=== PATIENT | male | born 1975 | race Two or more races ===

== ENCOUNTER 2019-06-16 14:39 | Emergency (ER) | payer OTHER, SELFPAY ==
--- NOTE | ~2019-06-16 | CT_ITS ---
EXAMINATION: CT brain wo con DATE: 06/16/2019 16:01 INDICATION: Headache and dizziness. TECHNIQUE: Computed tomography (CT) of the head was performed without intravenous contrast. The mA wa s adjusted according to patient size. Iterative reconstruction technique was employed. The dose-lengt h product was 605.33 mGy-cm. COMPARISON: None FINDINGS: There is no intracranial hemorrhage, acute infarction, or abnormal intracranial mass lesion . The ventricles are normal in size. Cavum septum pellucidum and vergae are noted. There is mild muco stephane thickening in the ethmoid sinuses. The orbits are normal. The mastoid air cells are normal. IMPRESSION: 1. Normal brain. Reviewed, dictated and finalized at location A. HAND IMPRESSION: 1. Normal brain.
--- NOTE | ~2019-06-16 | US_ITS ---
EXAMINATION: US venous doppler LE RT EXAM DATE: 06/16/2019 15:56 INDICATION: Right calf pain. TECHNIQUE: Multiple grayscale, color flow and Doppler images of the right lower extremity deep venous system were obtained and reviewed. There is no prior study for comparison. FINDINGS: The right common femoral, femoral and profunda veins demonstrate normal color flow, respira tory variation, augmentation and compressibility. Compressibility, color flow confirmed within the r ight popliteal, posterior tibial, peroneal, and greater saphenous veins. IMPRESSION: 1. No right lower extremity deep venous thrombosis. Reviewed, dictated and finalized at location A. ANIZER OPERATOR
--- NOTE | ~2019-06-16 | XR_ITS ---
EXAMINATION: XR chest 2V 06/16/2019 15:43 INDICATION: Dizziness and weakness. Nausea. Dyspnea. PROCEDURE: 2 view chest COMPARISON: No prior studies for comparison. FINDINGS: The lungs are clear. The cardiomediastinal silhouette is within normal limits. There are no pleural effusions. There is no pneumothorax suspected. IMPRESSION: 1: NO ACUTE CARDIOPULMONARY DISEASE. Reviewed, dictated and finalized at location B. UCT SAFETY SPECIALIST
--- NOTE | 2019-06-16 14:49 | ECG_ITS ---
Measurements Intervals [place] Rate: 58 P: 21 VA: 141 QRS: 13 QRSD: 106 T: 87 QT: 442 QTc: 438 Interpretive Statements SINUS BRADYCARDIA BORDERLINE ST-T WAVE ABNORMALITY- ANTEROLAT/LAT LEADS BASELINE WANDER- V3 BORDERLINE ECG Electronically Signed On 06-16-2019 16:28:11 CAN LINE OPERATOR by Luis Spivey D.O.
[2019-06-16 14:51] VITALS: BP 134/96; PULSE 76; RESP 24; O2SAT 98
--- NOTE | 2019-06-16 14:54 | ED.DIZZY ---
HPI - Dizziness General Chief Complaint: Dizziness <Lali Conway MD - Last Filed: 06/16/19 16:31> Stated Complaint: dizzy <Lali Conway MD - Last Filed: 06/16/19 16:31> Time Seen by Provider: 06/16/19 14:51 <Lali Conway MD - Last Filed: 06/16/19 16:31> Source: patient and RN notes reviewed <Lali Conway MD - Last Filed: 06/16/19 16:31> Mode of arrival: ambulatory <Lali Conway MD - Last Filed: 06/16/19 16:31> Limitations: no limitations <Lali Conway MD - Last Filed: 06/16/19 16:31> History of Present Illness HPI Narrative: Pt is a 44 y/o male with a Hx of DM, who presents to the ED with c/o dizziness starting last night. He notes that he was recently placed on Alogliptin. Pt states that he developed dizziness and an intense headache last night. He notes that his headache is aggravated with light. Pt also reports having generalized weakness and troubled gait, but denies any CP, SOB, ABD pain, vomiting, cough, or LE edema. He states that his BS has been running between 150-200 recently. Pt denies having any recent travel. <Lali Conway MD - Last Filed: 06/16/19 16:31> MD elicited complaint: dizziness <Lali Conway MD - Last Filed: 06/16/19 16:31> Onset (ago): day(s) (1) <Lali Conway MD - Last Filed: 06/16/19 16:31> Description: difficulty walking <Lali Conway MD - Last Filed: 06/16/19 16:31> Context: change in medication (newly prescribed Alogliptin) <Lali Conway MD - Last Filed: 06/16/19 16:31> Associated symptoms: weakness (generalized) and other (headache) <Lali Conway MD - Last Filed: 06/16/19 16:31> Associated neuro symptoms: gait ataxia <Lali Conway MD - Last Filed: 06/16/19 16:31> Related Data Allergies/Adverse Reactions: Allergies Allergy/AdvReac Type Severity Reaction Status Date / Time No Known Allergies Allergy Verified 06/16/19 15:00 <Lali Conway MD - Last Filed: 06/16/19 16:31> Review of Systems Review of Systems: Narrative: CONSTITUTIONAL: Denies fever, chills, or sweats. Reports generalized weakness. CARDIOVASCULAR: Denies chest pain, palpitations, or LE edema. RESPIRATORY: Denies cough or dyspnea. GASTROINTESTINAL: Denies abdominal pain, nausea, vomiting, or diarrhea. GENITOURINARY: Denies dysuria or hematuria. MUSCULOSKELETAL: Denies back pain, joint pain, or myalgia. NEUROLOGIC: Reports headache, dizziness, and troubled gait. Denies numbness. <Lali Conway MD - Last Filed: 06/16/19 16:31> All systems reviewed & are unremarkable except as noted in HPI and below <Lali Conway MD - Last Filed: 06/16/19 16:31> PMFSH Past Medical History Medical History: Medical History Diabetes Gout <Lali Conway MD - Last Filed: 06/16/19 16:31> Surgical History Surgical History: Surgical History No significant past surgical history <Lali Conway MD - Last Filed: 06/16/19 16:31> Social History Social History: Social History Smoking status: Never smoker Gender identity (if verbalized by the patient): Male <Lali Conway MD - Last Filed: 06/16/19 16:31> Exam Narrative: Exam Narrative: GENERAL: Uncomfortable appearing, well-nourished, and in no acute distress. HEAD: Normocephalic, atraumatic. EYES: PERRLA and EOMI. ENT: Nares clear, no rhinorrhea or epistaxis. Mucous membranes dry. NECK: Supple. CHEST: Clear to auscultation. No respiratory distress. HEART: Regular rate and rhythm. No murmur heard. Normal peripheral pulses. ABDOMEN: Soft, nontender, nondistended, normal active bowel sounds. EXTREMITIES: Normal range of motion. No edema. Rt calf tenderness. SKIN: Warm, dry, no rash. NEURO: No focal deficits. Alert and oriented. <Lali Conway MD - Last Filed:
[2019-06-16 15:03] LABS: Glucose Point of Care 206 (65-105)
[2019-06-16] MEDS: SODIUM CHLORIDE 0.9% IV 1,000 ML 999 ML IV CONT (15:07)
[2019-06-16 15:09] LABS: Basophils Absolute Auto 0.1 K/mm3 (0.0-0.1); Basophils Percent Auto 0.8 % (0.2-1.2); Eosinophils Absolute Auto 0.2 K/mm3 (0-0.3); Hematocrit 47.3 % (42.0-52.0); Hemoglobin 15.7 g/dL (14.0-18.0); Immature Granulocyte Absolute 0.01 K/mm3 (0.00-0.031); Immature Granulocyte Percent A 0.1 % (0-0.5); Lymphocytes Absolute Auto 2.86 K/mm3 (0.9-3.2); Lymphocytes Percent Auto 37.7 % (18.3-44.2); Mean Corpuscular HGB Conc 33.2 g/dl (32-36); Mean Corpuscular Hemoglobin 28.3 pg (26-34); Mean Corpuscular Volume 85.4 fl (80-100); Mean Platelet Volume 10.5 fl (7.4-10.4); Monocytes Absolute Auto 0.6 K/mm3 (0.1-0.6); Monocytes Percent Auto 8.2 % (2.6-8.5); Neutrophils Absolute Auto 3.9 K/mm3 (1.3-6.7); Neutrophils Percent Auto 51.2 % (45.5-73.1); Platelet Count Result 217 k/mm3 (150-375); Red Blood Count 5.54 M/mm3 (4.6-6.20); Red Cell Distribution Width 12.2 % (11.5-14.5); White Blood Count 7.6 K/mm3 (4.5-10.0)
[2019-06-16] MEDS: METOCLOPRAMIDE HCL INJ 10 MG/2 ML VIAL IV PUSH (15:09)
[2019-06-16] MEDS: MORPHINE SULFATE 4 MG/ML INJ IV PUSH (15:11)
[2019-06-16 15:18] LABS: Prothrombin Time 12.5 Seconds (11.1-14.7)
[2019-06-16 15:19] LABS: Add Urine Microscopic? YES; Appearance Urine Clear (Clear); Bilirubin Urine Negative (Negative); Blood Urine Negative (Negative); Color Urine Straw (Yellow); Glucose Urine UA 3+ mg/dL (Negative); Ketones Urine 1+ mg/dL (Negative); Leukocyte Esterase Ur Negative LEU/UL (Negative); Nitrate Urine Negative (Negative); Protein Urine Negative (Negative); RBC Urine 0-2 /hpf (0-2); Urobilinogen Urine Negative mg/dL (<2.0); WBC Urine 0-3 /hpf
[2019-06-16 15:19] LABS: Partial Thromboplastin Time 24.5 SECONDS (22.3-36.8)
[2019-06-16 15:20] LABS: Specific Grav Ur 1.031 (1.001-1.035)
[2019-06-16 15:21] LABS: Alveolar/Arterial O2 Gradient 26.7 mmHg; Base Excess ABG -1.1 mEq/l (+/-2.0); Carboxyhemoglobin 0.8 % THb (0-2.0); Device ROOM AIR; Fractional Inspired Oxygen 21 %; Methemoglobin ABG 0.3 %THb (0-1.5); Modified Allen's Test Pass; Oxygen Saturation ABG 95.8 % (95.0-100.0); Oxyhemoglobin 94.6 % THb (90.0-100.0); PCO2 ABG 36.9 mmHg (35.0-45.0); PO2 ABG 78.8 mmHg (80.0-100.0); PO2 FiO2 Ratio Arterial Blood 3.75 %; Reduced Hemoglobin 4.3 %THb (0-5.0); Site Drawn RIGHT RADIAL; Total Hemoglobin 15.8 g/dL (12.0-18.0); pH ABG 7.412 (7.350-7.450)
[2019-06-16 15:29] LABS: Alanine Aminotransferase 42 U/L (4-50); Albumin Level 4.5 g/dL (3.5-5.1); Alkaline Phosphatase 89 U/L (38-126); Aspartate Amino Transferase 39 U/L (17-59); Bilirubin,Total 0.6 mg/dL (0.2-1.3); Blood Urea Nitrogen 17 mg/dL (9-20); Calcium 9.6 mg/dL (8.4-10.2); Carbon Dioxide 22 mmol/L (22-30); Chloride 104 mmol/L (98-107); Estimated CRCL calculation 87 ml/min; Estimated Glomerular Filt Rate > 60; Glucose 217 mg/dL (75-110); Lipase 317 U/L (23-300); Potassium 4.4 mmol/L (3.4-5.0); Sodium 136 mmol/L (137-145)
[2019-06-16 15:36] LABS: Amphetamine Screen Urine Negative (Negative); Barbiturate Screen Urine Negative (Negative); Benzodiazepines Screen Urine Negative (Negative); Cannabinoid Screen Urine Negative (Negative); Cocaine Screen Urine Negative (Negative); Methadone Screen Urine Negative (Negative); Opiate Screen Urine Negative (Negative); Phencyclidine Screen Urine Negative (Negative)
[2019-06-16 15:39] LABS: NT Pro B Type Natriuretic Pept 38 PG/ML (5-100); Troponin I < 0.012 ng/mL (0.000-0.034)
[2019-06-16] MEDS: MECLIZINE HCL 25 MG TABLET PO (16:11)
[2019-06-16 16:21] LABS: Creatine Kinase 67 U/L (55-170)
[2019-06-16 17:23] VITALS: BP 128/81; PULSE 59; RESP 17; O2SAT 96
--- NOTE | 2019-06-16 19:12 | PC.NURSE ---
PT AMBULATED WITHOUT ASSISTANCE. PT STATED HE ONLY FEELS A LITTLE DIZZY .
--- NOTE | 2019-06-16 19:17 | PC.NURSE ---
Dr. Cohen requested that pt get up and walk and see how he handles it. oil change technician walked pt around nurses station and did fine. Pt states he felt good doing it. This RN informed Dr. Cohen
[2019-06-16 20:15] VITALS: BP 132/78; PULSE 60; RESP 15; O2SAT 100
== END 2019-06-16 20:05 | disposition home or self-care (01) ==
PROVIDERS: Emergency Medicine; Emergency Provider Emergency Medicine
DX: G43.909 Migraine, unspecified, not intractable, without status migrainosus (principal); E11.9 Type 2 diabetes mellitus without complications; M10.9 Gout, unspecified; R00.1 Bradycardia, unspecified; R94.31 Abnormal electrocardiogram [ECG] [EKG]; M79.661 Pain in right lower leg
CPT/HCPCS: 36415; 36600; 70450; 71046; 80053; 80307; 81001; 82375; 82550; 82805; 83050; 83690; 83880; 84484; 85025; 85610; 85730; 93005; 93971; 96365; 96375; 99284; A9270; J0131; J1100; J2270; J2765; J7030

== ENCOUNTER 2022-06-15 19:36 | Emergency (ER) | payer OTHER, SELFPAY ==
--- NOTE | ~2022-06-15 | CT_ITS ---
EXAMINATION: CT brain wo con INDICATION: Head injury COMPARISON: None TECHNIQUE: Standard unenhanced head CT. The dose-length product (DLP) was 605.33 mGy-cm. The mA was a djusted according to patient size. Iterative reconstruction technique was employed. FINDINGS: There is no intracranial hemorrhage, acute infarction, or abnormal mass lesion. The ventric les are normal. There is no abnormal mass effect or midline shift. The selby-white matter differentiat ion is normal. The basal cisterns are patent. The orbits are normal. There is mild mucosal thickening of the paranasal sinuses. IMPRESSION: 1. No acute intracranial abnormality. Reviewed, dictated and finalized at location F. GN PAINTER
--- NOTE | ~2022-06-15 | CT_ITS ---
EXAMINATION: CT cervical spine wo con DATE: 06/15/2022 22:27 INDICATION: Neck pain TECHNIQUE: Computed tomography (CT) of the cervical spine was performed without intravenous contrast. The dose-length product (DLP) was 292.59 mGy-cm. Automated exposure control and iterative reconstruc tion technique were employed. COMPARISON: None FINDINGS: Bone alignment is normal. There is no fracture. The vertebral body heights and intervertebr al disc spaces are normal. The odontoid process is intact. IMPRESSION: 1. No acute osseous abnormality. Reviewed, dictated and finalized at location F. HOUSE RECEIVING SUPERVISOR
--- NOTE | ~2022-06-15 | XR_ITS ---
EXAMINATION: XR shoulder LT min 2V INDICATION: Left shoulder pain TECHNIQUE: Four views of the left shoulder are submitted. COMPARISON: None FINDINGS: Normal alignment. No fracture. Glenohumeral and acromioclavicular joint spaces are normal. Soft tissues are unremarkable. IMPRESSION: 1. No acute osseous abnormality. Reviewed, dictated and finalized at location F. ROENTEROLOGIST
[2022-06-15 19:54] VITALS: BP 137/93; PULSE 98; RESP 18; TEMP 36.2; O2SAT 99
[2022-06-15 21:12] VITALS: BP 105/69; PULSE 79; RESP 18; TEMP 36.6; O2SAT 99
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
[2022-06-15 23:39] VITALS: BP 118/82; PULSE 70; RESP 18; TEMP 36.6; O2SAT 99
== END 2022-06-15 23:39 | disposition home or self-care (01) ==
PROVIDERS: Emergency Provider Emergency Medicine
DX: S09.90XA Unspecified injury of head, initial encounter (principal); S16.1XXA Strain of muscle, fascia and tendon at neck level, initial encounter; V49.40XA Driver injured in collision with unspecified motor vehicles in traffic accident, initial encounter
CPT/HCPCS: 70450; 72125; 73030; 99284